=== PATIENT | female | born 1990 | race Caucasian/White ===

== ENCOUNTER 2018-06-25 13:09 | Emergency (ER) | payer SELFPAY ==
[~2018-06-25] VITALS: Ht 162.6 cm; Wt 75.7 kg
--- OUTSIDE RECORDS SUMMARY | 2018-06-25 13:15 | XMS REPORT | CCD ---
Author Author ELIANA ANTUNEZ Organization Unknown Address [address] [place] [address] Care Team Providers Care Claim Auditor Name Role Phone PHIL BARKSDALE DO Attphys Allergies Unknown or Not Available. Active Medications Unknown or Not Available. Problems Problem Code Start Date Resolved Date Status Acute appendicitis 52342482 Active Post-op pain 430831474 Active [id number] 11/25/2017 12/23/2017 Resolved Procedures Procedure Code Procedure Type Date ^CULTURE URINE IDENTIFICATION [id number] SNOMED CT 2016 ^CULTURE AEROBIC ID [id number] SNOMED CT 04/29/2017 CULTURE URINE [id number] SNOMED CT 04/29/2017 UA ROUTINE C&S IF IND [id number] SNOMED CT 04/29/2017 ^UA WITH MICRO [id number] SNOMED CT 04/29/2017 Results UA ROUTINE C&S IF IND - Collect Date/Time: 04/29/2017 01:13 Test Name Code Test Result Test Units Test Ref Range COLOR YELLOW N/A NL: YELLOW APPEARANCE CLOUDY N/A NL: CLEAR SPEC GRAV >=1.030 N/A NL: 1.002 - 1.022 pH 5.5 N/A NL: 5 - 9 PROTEIN 100 N/A NL: NEGATIVE mg/dl GLUCOSE NEGATIVE N/A NL: NEGATIVE mg/dl KETONE NEGATIVE N/A NL: NEGATIVE mg/dl BILIRUBIN NEGATIVE N/A NL: NEGATIVE BLOOD LARGE N/A NL: NEGATIVE NITRITE NEGATIVE N/A NL: NEGATIVE LEUK SCREEN MODERATE N/A NL: NEGATIVE MICRO INDICATED? SEE BELOW N/A WBC/HPF 300-500 N/A NL: NEGATIVE RBC/HPF 50-100 N/A NL: NEGATIVE CASTS/LPF NEGATIVE N/A NL: NEGATIVE CRYSTALS NEGATIVE N/A NL: NEGATIVE MUCOUS THRDS FEW N/A NL: NEGATIVE BACTERIA 2++ N/A NL: NEGATIVE EPITH CELLS 2++ SQUAMOUS N/A NL: NEGATIVE TRICHOMONAS NEGATIVE N/A NL: NEGATIVE YEAST NEGATIVE N/A NL: NEGATIVE CULT SET UP? YES N/A Function Status Unknown or Not Available. History of Immunizations Immunization Code Date DTP 1992 DTP 05/07/1996 OPV 1992 OPV 01/20/1996 OPV 05/07/1996 OPV 02 11/26/1996 MMR 03 01/20/1996 MMR 03 07/30/1996 Hep B, adolescent or pediatric 01/20/1996 Hep B, adolescent or pediatric 05/07/1996 Hep B, adolescent or pediatric 08 07/30/1996 DTaP 20 11/26/1996 DTP-Hib 22 01/20/1996 Hib (HbOC) 47 1992 Plan of Treatment Unknown or Not Available. Social History Smoking Status Code Start Date End Date Never smoker [id number] Vital Signs Unknown or Not Available. Function Status Unknown or Not Available. Goals Unknown or Not Available. ASSESSMENTS Unknown or Not Available. Health Concerns Section Unknown or Not Available.
--- OUTSIDE RECORDS SUMMARY | 2018-06-25 13:16 | XMS REPORT ---
Author Author Rene Dillard [facility] Address [address] [place], [place] [address] Care Team Providers Care Plow Shaker Name Role Phone Rene Dillard PCP Eloisa Smithn PreferredProvider Allergies and Adverse Reactions Name Reaction Notes No known drug allergy Plan of Treatment Planned Activity Comments Planned Date Planned Time Plan/Goal Transabdominal / Transvaginal US (non-OB) 05/26/2018 12:00 AM Transabdominal / Transvaginal US (non-OB) 05/26/2018 12:00 AM Medications Active Name Start Date Estimated Completion Date SIG Comments Sprintec (28) 0.25-35 mg-mcg oral tablet 03/12/2018 take 1 tablet by oral route once daily Lo Loestrin Fe 1 mg-10 mcg (24)/10 mcg (2) oral tablet 05/26/2018 take 1 tablet by oral route once daily. (brand name necessary) naproxen 250 mg oral tablet ibuprofen 200 mg oral capsule take 4 capsules by oral route every 6 hours as needed amoxicillin 875 mg oral tablet 05/28/2018 06/07/2018 take 1 tablet (875 mg) by oral route every 12 hours for 10 days Name Start Date Expiration Date SIG Comments cephalexin 500 mg oral capsule 04/17/2017 04/24/2017 take 1 capsule (500 mg) by oral route every 12 hours for 7 days triamcinolone acetonide 0.1 % topical cream 04/17/2017 04/24/2017 apply a thin layer to the affected area(s) by topical route 2 times per day for 7 days [place] 5-325 mg oral tablet 02/18/2018 take 1 tablet by oral route every 4-6 hours as needed for pain Discontinued Name Start Date Discontinued Date SIG Comments Progestrone 200 mg 08/06/2017 Problem List Not available. Vital Signs Date Time BP-Sys(mm[Hg] BP-Avani(mm[Hg]) HR(bpm) RR(rpm) Temp WT HT HC BMI BSA BMI Percentile O2 Sat(%) 05/28/2018 3:57:00 PM 124 mmHg 68 mmHg 88 bpm 18 rpm 98.1 F 179.25 lbs 66 in 28.9314 kg/m 1.9458 m 99 % 05/26/2018 10:56:00 AM 133 mmHg 86 mmHg 88 bpm 18 rpm 100.6 F 180.5 lbs 66 in 29.13 kg/m2 1.95 m2 100 % 03/04/2018 11:17:00 AM 104 mmHg 80 mmHg 74 bpm 98.4 F 180 lbs 66 in 29.0525 kg/m 1.9499 m 97 % 02/18/2018 10:11:00 AM 110 mmHg 80 mmHg 95 bpm 16 rpm 98 F 179 lbs 66 in 28.89 kg/m2 1.94 m2 97 % 02/17/2018 2:48:00 PM 120 mmHg 84 mmHg 75 bpm 16 rpm 98.2 F 182 lbs 66 in 29.3753 kg/m 1.9607 m 98 % 01/29/2018 2:16:00 PM 112 mmHg 82 mmHg 74 bpm 16 rpm 98.2 F 182 lbs 66 in 29.38 kg/m2 1.96 m2 98 % 01/27/2018 9:31:00 AM 120 mmHg 68 mmHg 82 bpm 16 rpm 98.7 F 177 lbs 66 in 28.5683 kg/m 1.9336 m 98 % 01/06/2018 1:31:00 PM 120 mmHg 78 mmHg 83 bpm 98.9 F 176 lbs 66 in 28.41 kg/m2 1.93 m2 08/06/2017 3:31:00 PM 118 mmHg 64 mmHg 84 bpm 16 rpm 98 F 172.125 lbs 66 in 27.7814 kg/m 1.9067 m 99 % 04/19/2017 11:05:00 AM 108 mmHg 71 mmHg 89 bpm 99.3 F 173 lbs 66 in 27.92 kg/m2 1.91 m2 04/17/2017 11:54:00 AM 110 mmHg 80 mmHg 81 bpm 18 rpm 98.2 F 173 lbs 66 in 27.9226 kg/m 1.9116 m 99 % Social History Name Description Comments Tobacco Never smoker Alcohol Former History of Procedures Date Ordered Description Order Status 04/19/2017 11:36 AM URINE TEST Reviewed 04/19/2017 12:00 AM CYTOPATH C/V THIN LAYER Reviewed 04/19/2017 12:00 AM SPECIMEN HANDLING OFFICE-LAB Reviewed 04/19/2017 12:00 AM N.GONORRHOEAE DNA AMP PROB Reviewed 04/19/2017 12:00 AM CHLAMYDIA CULTURE Reviewed 04/19/2017 12:00 AM HIV-1ANTIBODY Reviewed 04/19/2017 12:00 AM URINALYSIS AUTO W/SCOPE Reviewed 04/19/2017 12:00 AM OBSTETRIC PANEL Reviewed 04/19/2017 12:00 AM HEPATITIS C AB TEST Reviewed 04/19/2017 12:00 AM TRICHOMONAS VAGINALIS AMPLIF Reviewed 05/03/2017 12:00 AM US PREG UTERUS REAL TIME W/IMAGE DCMTN TRANSVAG Reviewed 05/09/2017 12:00 AM Progenity Testing Reviewed 07/11/2017 12:00 AM OB US >/=14 WKS SNGL FETUS Reviewed 08/22/2017 12:00 AM GLUCOSE TOLERANCE TEST (GTT) Reviewed 08/22/2017 12:00 AM COMPLETE CBC W/AUTO DIFF WBC Reviewed 08/22/2017 12:00 AM Type and screen Reviewed 08/06/2017 12:00 AM X-RAY EXAM OF WRIST Reviewed 09/19/2017 12:00 AM Type and screen Reviewed 09/19/2017 12:00 AM GLUCOSE TOLERANCE TEST (GTT) Reviewed 09/19/2017 12:00 AM COMPLETE CBC W/AUTO DIFF WBC Reviewed 10/10/2017 12:00 AM TDAP VACCINE 7 YRS/> IM Reviewed 10/10/2017 12:00 AM IMMUNIZATION ADMIN Reviewed 11/04/2017 12:00 AM CULTURE SCREEN ONLY Reviewed 01/06/2018 12:00 AM CYTOPATH C/V THIN LAYER Reviewed 02/18/2018 12:[address] ABD & PELV W/CONTRAST Returned 02/18/2018 12:00 AM COMPLETE CBC W/AUTO DIFF WBC Returned 02/18/2018 12:00 AM COMPREHEN METABOLIC PANEL Returned 02/18/2018 12:00 AM C-REACTIVE PROTEIN Returned 05/28/2018 12:00 AM THER/PROPH/DIAG INJ SC/IM Reviewed Results Summary Date and Description Results 04/19/2017 11:36 AM Test, Urine positive 04/19/2017 12:40 PM WBC 9.0 RBC 4.40 HGB 13.60 g/dLHCT 39.40 %MCV 90.0 fLMCH 30.90 pgMCHC 34.50 g/dLRDW SD 42 RDW CV 12.80 %MPV 8.60 fLPLT 293 NRBC# 0.00 NRBC% 0.0 %NEUT 59.20 %%LYMP 31.70 %%MONO 6.60 %%EOS 1.60 %%BASO 0.30 %#NEUT 5.32 #LYMP 2.85 #MONO 0.59 #EOS 0.14 #BASO 0.03 MANUAL DIFF NOT IND HEPATITIS C 0.20 HIV AG/AB COMBO 0.15 RPR Non Reactive HBsAg Screen Negative Rubella Antibodies, IgG 4.46 Index 09/19/2017 4:08 PM WBC 12.0 RBC 4.14 HGB 13.0 g/dLHCT 38.0 %MCV 92.0 fLMCH 31.40 pgMCHC 34.20 g/dLRDW SD 42 RDW CV 12.50 %MPV 8.90 fLPLT 277 NRBC# 0.00 NRBC% 0.0 %NEUT 72.70 %%LYMP 18.10 %%MONO 6.20 %%EOS 1.40 %%BASO 0.30 %#NEUT 8.72 #LYMP 2.17 #MONO 0.74 #EOS 0.17 #BASO 0.03 MANUAL DIFF NOT IND 11/04/2017 8:30 AM Strep Gp B NATI Negative History Of Immunizations Name Date Admin Mfg Name Mfg Code Trade Name Lot# Route Inj Vis Given Vis Pub CVX Tdap 10/10/2017 [employer] SKB BOOSTRIX [id number] Intramuscular Left Deltoid 10/10/2017 12/14/2014 115 History of Past Illness Name Date of Onset Comments endometriosis Apr 17 2017 11:57AM Cutaneous abscess of limb, unspecified Apr 17 2017 11:57AM Cellulitis of unspecified part of limb Apr 17 2017 11:57AM Earlobe lesion, left Apr 17 2017 11:57AM , confirmed, not first Apr 19 2017 11:14AM Encounter for supervision of normal in multigravida in first trimester May 03 2017 10:48AM Normal in multigravida in first trimester May 09 2017 10:17AM Normal in multigravida in second trimester Jun 27 2017 11:09AM Left wrist pain Aug 06 2017 3:39PM Normal in multigravida in second trimester Aug 22 2017 2:59PM Normal in multigravida in second trimester Sep 19 2017 3:08PM Need for Tdap vaccine Oct 10 2017 11:50AM screening for streptococcus B Nov 04 2017 1:58PM 6 weeks follow-up Jan 06 2018 1:36PM Encounter for occupational health examination Jan 27 2018 9:35AM Epigastric hernia Jan 29 2018 2:16PM Chills Feb 18 2018 10:12AM Unspecified abdominal pain Feb 18 2018 10:12AM Other acute postprocedural pain Feb 18 2018 10:12AM Encounter for examination following surgery Mar 04 2018 11:20AM Encounter for examination following surgery Feb 17 2018 2:49PM Acute pain in female pelvis May 26 2018 11:27AM control counseling May 26 2018 11:01AM Ovarian cyst May 26 2018 11:01AM Menorrhagia May 26 2018 11:01AM Metrorrhagia May 26 2018 11:01AM Throat Pain May 28 2018 4:04PM Strep pharyngitis May 28 2018 4:04PM Payers Insurance Name Company Name Plan Name Plan Number Policy Number Policy Group Number [facility] Date [id number] N/A [facility] [id number] N/A [facility] Med Occupational Medicine [id number] N/A [facility] [id number] N/A History of Encounters Visit Date Visit Type Provider 05/28/2018 Office visit Rene Dillard NP 05/26/2018 Office visit Samy Griffin MD 03/04/2018 Office visit Saul Ramires MD 02/20/2018 Surgery Saul Ramires MD 02/18/2018 Office visit Saul Ramires MD 02/17/2018 Office visit Saul Ramires MD 02/07/2018 Surgery Saul Ramires MD 01/29/2018 Office visit Saul Ramires MD 01/27/2018 Office visit Teresita Carter APRN 01/06/2018 Office visit Samy Griffin MD 11/25/2017 [facility] Samy Griffin MD 11/21/2017 Office visit Samy Griffin MD 11/18/2017 Office visit Samy Griffin MD 11/11/2017 Office visit Samy Griffin MD 11/04/2017 Office visit Samy Griffin MD 10/31/2017 Office visit Samy Griffin MD 10/22/2017 Office visit Samy Griffin MD 10/10/[address] Nany Vega MD 09/19/2017 Office visit Samy Griffin MD 08/22/2017 Office visit Samy Griffin MD 08/06/2017 Office visit Rene Dillard NP 07/25/2017 Office visit Samy Griffin MD 06/27/2017 Office visit Samy Griffin MD 05/30/2017 Office visit Samy Griffin MD 05/03/2017 Office visit Samy Griffin MD 04/19/2017 Office visit Shelia Jarvis APRN 04/17/2017 Office visit Eloisa Smith APRN
--- OUTSIDE RECORDS SUMMARY | 2018-06-25 13:16 | XMS REPORT ---
Author Author Rene Dillard [facility] Address [address] [place], [place] [address] Care Team Providers Care Underwear Cutter Name Role Phone Rene Dillard PCP Eloisa [...] 2 times per day for 7 days [place] 5-325 mg oral tablet 02/18/2018 take 1 [...] Vis Given Vis Pub CVX Tdap 10/10/2017 [employer] SKB BOOSTRIX [id number] Intramuscular Left Deltoid 10/10/2017 [...] Policy Number Policy Group Number Start Date [facility] [id number] N/A [facility] [id number] N/A [facility] Med Occupational Medicine [id number] N/A [facility] [id number] N/A History of Encounters Visit Date Visit [...] 01/06/2018 Office visit Samy Griffin MD 11/25/2017 [facility] Samy Griffin MD 11/21/2017 Office visit Samy [...]
--- OUTSIDE RECORDS SUMMARY | 2018-06-25 13:17 | XMS REPORT ---
Author Author Samy Griffin [facility] Address [address] [place], [place] [address] Care Team Providers Care Production Miner Name Role Phone Samy Griffin PCP Eloisa Smith PreferredProvider Allergies and Adverse Reactions Name Reaction Notes No known drug allergy Plan of Treatment Planned Activity Comments Planned Date Planned Time Plan/Goal Transabdominal / Transvaginal US (non-OB) 05/26/2018 12:00 AM Transabdominal / Transvaginal US (non-OB) 05/26/2018 12:00 AM Medications Active Name Start Date Estimated Completion Date SIG Comments [place] 5-325 mg oral tablet 02/18/2018 take 1 tablet by oral route every 4-6 hours as needed for pain Sprintec (28) 0.25-35 mg-mcg oral tablet 03/12/2018 take 1 tablet by oral route once daily Name Start Date Expiration Date SIG Comments cephalexin 500 mg oral capsule 04/17/2017 04/24/2017 take 1 capsule (500 mg) by oral route every 12 hours for 7 days triamcinolone acetonide 0.1 % topical cream 04/17/2017 04/24/2017 apply a thin layer to the affected area(s) by topical route 2 times per day for 7 days Discontinued Name Start Date Discontinued Date SIG Comments Progestrone 200 mg 08/06/2017 Problem List Not available. Vital Signs Date Time BP-Sys(mm[Hg] BP-Avani(mm[Hg]) HR(bpm) RR(rpm) Temp WT HT HC BMI BSA BMI Percentile O2 Sat(%) 05/26/2018 10:56:00 AM 133 mmHg 86 mmHg 88 bpm 18 rpm 100.6 F 180.5 lbs 66 in 29.1332 kg/m 1.9526 m 100 % 03/04/2018 11:17:00 AM 104 mmHg 80 mmHg 74 bpm 98.4 F 180 lbs 66 in 29.05 kg/m2 1.95 m2 97 % 02/18/2018 10:11:00 AM 110 mmHg [...] Returned 02/18/2018 12:00 AM C-REACTIVE PROTEIN Returned Results Summary Date and Description Results 04/19/2017 [...] Vis Given Vis Pub CVX Tdap 10/10/2017 [employer] SKB BOOSTRIX [id number] Intramuscular Left Deltoid 10/10/2017 [...] in female pelvis May 26 2018 11:27AM Payers Insurance Name Company Name Plan Name Plan Number Policy Number Policy Group Number Start Date BCBS [employer] [place] [id number] N/A [facility] [id number] N/A [facility] Occupational Medicine [id number] N/A [facility] [id number] N/A History of Encounters Visit Date Visit Type Provider 05/26/2018 Office visit Samy Griffin MD 03/04/2018 Office visit Saul Ramires MD 02/20/2018 Surgery Saul Ramires MD 02/18/2018 Office visit Saul Ramires MD 02/17/2018 Office visit Saul Ramires MD 02/07/2018 Surgery Saul Ramires MD 01/29/2018 Office visit Saul Ramires MD 01/27/2018 Office visit Teresita Carter ROTARY PLANER SET UP OPERATOR 01/06/2018 Office visit Samy Griffin MD 11/25/2017 [facility] Samy Griffin MD 11/21/2017 Office visit [...] Griffin MD 04/19/2017 Office visit Shelia Jarvis ROTARY PLANER SET UP OPERATOR 04/17/2017 Office visit Eloisa Smith ROTARY PLANER SET UP OPERATOR
--- OUTSIDE RECORDS SUMMARY | 2018-06-25 13:17 | XMS REPORT ---
Author Author Samy Griffin [facility] Address [address] [place], [place] [address] Care Team Providers Care Outbound Sales Agent Name Role Phone Samy Griffin PCP Eloisa Smith PreferredProvider Allergies and Adverse Reactions Name Reaction Notes No known drug allergy Plan of Treatment Planned Activity Comments Planned Date Planned Time Plan/Goal Transabdominal / Transvaginal US (non-OB) 05/26/2018 12:00 AM Transabdominal / Transvaginal US (non-OB) 05/26/2018 12:00 AM Medications Active Name Start Date Estimated Completion Date SIG Comments [place] 5-325 mg oral tablet 02/18/2018 take 1 tablet by oral route every 4-6 hours as needed for pain Sprintec (28) 0.25-35 mg-mcg oral tablet 03/12/2018 take 1 tablet by oral route once daily Lo Loestrin Fe 1 mg-10 mcg (24)/10 mcg (2) oral tablet 05/26/2018 take 1 tablet by oral route once daily. (brand name necessary) Name Start Date Expiration Date SIG Comments [...] Vis Given Vis Pub CVX Tdap 10/10/2017 [employer] SKB BOOSTRIX [id number] Intramuscular Left Deltoid 10/10/2017 [...] 2018 11:01AM Metrorrhagia May 26 2018 11:01AM Payers Insurance Name Company Name Plan Name Plan Number Policy Number Policy Group Number Start Date BCBS [employer] [place] [id number] N/A [facility] [id number] N/A [facility] Occupational Medicine [id number] N/A [facility] - [facility] [id number] N/A History of Encounters Visit Date Visit Type Provider 05/26/2018 Office visit Samy Griffin MD 03/04/2018 Office visit Saul Ramires MD 02/20/2018 Surgery Saul Ramires MD 02/18/2018 Office visit Saul Ramires MD 02/17/2018 Office visit Saul Ramires MD 02/07/2018 Surgery Saul Ramires MD 01/29/2018 Office visit Saul Ramires MD 01/27/2018 Office visit Teresita Carter APRN 01/06/2018 Office visit Samy Griffin MD 11/25/2017 [facility] Samy Griffin MD 11/21/2017 Office [...] Jarvis APRN 04/17/2017 Office visit Eloisa Smith INVESTIGATIVE SHOPPER
--- OUTSIDE RECORDS SUMMARY | 2018-06-25 13:18 | XMS REPORT ---
Author Author Saul Ramires [facility] Address [address] [place], [place] [address] Care Team Providers Care Smoking Pipes Cleaner Name Role Phone Saul Ramires PCP Eloisa Smithn PreferredProvider Allergies and Adverse Reactions Name Reaction Notes No known drug allergy Plan of Treatment Not available. Medications Active Name Start Date Estimated Completion Date SIG Comments [place] 5-325 mg oral tablet 02/18/2018 take 1 [...] HC BMI BSA BMI Percentile O2 Sat(%) 03/04/2018 11:17:00 AM 104 mmHg 80 mmHg [...] Vis Given Vis Pub CVX Tdap 10/10/2017 [employer] SKB BOOSTRIX [id number] Intramuscular Left Deltoid 10/10/2017 [...] examination following surgery Feb 17 2018 2:49PM Payers Insurance Name Company Name Plan Name Plan Number Policy Number Policy Group Number Start Date [facility] [id number] N/A [facility] [id number] N/A [facility] Med Occupational Medicine [id number] N/A [facility] [id number] N/A History of Encounters Visit Date Visit Type Provider 03/04/2018 Office visit Saul Ramires MD 02/20/2018 Surgery Saul Ramires MD 02/18/2018 Office visit Saul Ramires MD 02/17/2018 Office visit Saul Ramires MD 02/07/2018 Surgery Saul Ramires MD 01/29/2018 Office visit Saul Ramires MD 01/27/2018 Office visit Teresita Carter TOBACCO WETTER 01/06/2018 Office visit Samy Griffin MD 11/25/2017 [facility] Samy Griffin MD 11/21/2017 Office visit [...] Griffin MD 04/19/2017 Office visit Shelia Jarvis TOBACCO WETTER 04/17/2017 Office visit Eloisa Smith TOBACCO WETTER
--- OUTSIDE RECORDS SUMMARY | 2018-06-25 13:18 | XMS REPORT ---
Author Author Samy Griffin Organization [facility] Address [address] [place], [place] [address] Care Team Providers Care Glaze Handler Name Role Phone Samy Griffin PCP Eloisa Smith PreferredProvider Allergies and Adverse Reactions Name Reaction Notes No known drug allergy Plan of Treatment Planned Activity Comments Planned Date Planned Time Plan/Goal GLUCOSE 50 gm 08/22/2017 12:00 AM CBC With Auto Differential 08/22/2017 12:00 AM 1 hour glucose tolerance test 09/19/2017 12:00 AM CBC + platelets + diff auto 09/19/2017 12:00 AM Medications Name Start Date Expiration Date SIG Comments [...] HC BMI BSA BMI Percentile O2 Sat(%) 08/06/2017 3:31:00 PM 118 mmHg 64 mmHg 84 bpm 16 rpm 98 F 172.125 lbs 66 in 27.78 kg/m2 1.91 m2 99 % 04/19/2017 11:05:00 AM 108 mmHg 71 mmHg 89 bpm 99.3 F 173 lbs 66 in 27.9226 kg/m 1.9116 m 04/17/2017 11:54:00 AM 110 mmHg 80 mmHg 81 bpm 18 rpm 98.2 F 173 lbs 66 in 27.92 kg/m2 1.91 m2 99 % Social History Name Description Comments [...] OB US >/=14 WKS SNGL FETUS Reviewed 08/06/2017 12:00 AM X-RAY EXAM OF WRIST Reviewed Results Summary Date and Description Results [...] Screen Negative Rubella Antibodies, IgG 4.46 Index History Of Immunizations Not available. History of Past Illness Name Date of [...] in second trimester Sep 19 2017 3:08PM Payers Insurance Name Company Name Plan Name Plan Number Policy Number Policy Group Number Start Date BCBS [employer] [place] [id number] N/A [facility] [id number] N/A [facility] [id number] N/A History of Encounters Visit Date Visit Type Provider 09/19/2017 Office visit Samy Griffin MD 08/22/2017 Office visit Samy Griffin MD 08/06/2017 Office visit Rene Dillard NP 07/25/2017 Office visit Samy Griffin MD 06/27/2017 Office visit Samy Griffin MD 05/30/2017 Office visit Samy Griffin MD 05/03/2017 Office visit Samy Griffin MD 04/19/2017 Office visit Shelia Jarvis APRN 04/17/2017 Office visit Eloisa Smith APRN
--- OUTSIDE RECORDS SUMMARY | 2018-06-25 13:18 | XMS REPORT ---
Author Author Samy Griffin Organization [facility] Address [address] [place], [place] [address] Care Team Providers Care Scrap Collector Name Role Phone Samy Griffin PCP Unavailable Eloisa Smith PreferredProvider Unavailable Allergies and Adverse Reactions Name Reaction Notes No known drug allergy Plan of Treatment Planned Activity Comments Planned Date Planned Time Plan/Goal GLUCOSE 50 gm 08/22/2017 12:00 AM CBC With Auto Differential 08/22/2017 12:00 AM Medications Name Start Date Expiration [...] in second trimester Aug 22 2017 2:59PM Payers Insurance Name Company Name Plan Name Plan Number Policy Number Policy Group Number Start Date [id number] N/A [facility] [id number] N/A History of Encounters Visit Date Visit Type Provider 08/22/2017 Office visit Samy Griffin MD 08/06/2017 Office visit Rene Dillard NP 07/25/2017 Office visit Samy Griffin MD 06/27/2017 Office visit Samy Griffin MD 05/30/2017 Office visit Samy Griffin MD 05/03/2017 Office visit Samy Griffin MD 04/19/2017 Office visit Shelia Jarvis APRN 04/17/2017 Office visit Eloisa Smith WELDING SYSTEMS AND EQUIPMENT REPAIRER
--- OUTSIDE RECORDS SUMMARY | 2018-06-25 13:18 | XMS REPORT ---
Author Author Saul Ramires [facility] Address [address] [place], [place] [address] Care Team Providers Care Research Intern Name Role Phone Saul Ramires PCP Eloisa Smithn PreferredProvider Allergies and Adverse Reactions Name Reaction Notes No known drug allergy Plan of Treatment Not available. Medications Active Name Start Date Estimated Completion Date SIG Comments [place] 5-325 mg oral tablet 02/18/2018 take 1 [...] Vis Given Vis Pub CVX Tdap 10/10/2017 [employer] SKB BOOSTRIX [id number] Intramuscular Left Deltoid 10/10/2017 [...] Policy Number Policy Group Number [facility] Date [facility] [id number] N/A [facility] [id number] N/A [facility] Med Occupational Medicine [id number] N/A [facility] [id number] N/A History of Encounters Visit Date Visit Type Provider 03/04/2018 Office visit Saul Ramires MD 02/20/2018 Surgery Saul Ramires MD 02/18/2018 Office visit Saul Ramires MD 02/17/2018 Office visit Saul Ramires MD 02/07/2018 Surgery Saul Ramires MD 01/29/2018 Office visit Saul Ramires MD 01/27/2018 Office visit Teresita Carter WINERY CELLAR HAND 01/06/2018 Office visit Samy Griffin MD 11/25/2017 [facility] Samy Griffin MD 11/21/2017 [...] Griffin MD 04/19/2017 Office visit Shelia Jarvis WINERY CELLAR HAND 04/17/2017 Office visit Eloisa Smith WINERY CELLAR HAND
--- OUTSIDE RECORDS SUMMARY | 2018-06-25 13:19 | XMS REPORT ---
Author Author Samy Griffin [facility] Address [address] [place], [place] [address] Care Team Providers Care Animal Tech Name Role Phone Samy Griffin PCP Eloisa Smith PreferredProvider Allergies and Adverse Reactions Name Reaction Notes No known drug allergy Plan of Treatment Planned Activity Comments Planned Date Planned Time Plan/Goal Group B strep culture 11/04/2017 12:00 AM Medications Name Start Date Expiration [...] Reviewed 10/10/2017 12:00 AM IMMUNIZATION ADMIN Reviewed Results Summary Date and Description Results [...] 0.17 #BASO 0.03 MANUAL DIFF NOT IND History Of Immunizations Name Date Admin Mfg Name Mfg Code Trade Name Lot# Route Inj Vis Given Vis Pub CVX Tdap 10/10/2017 Nitric Bio SKB BOOSTRIX [id number] Intramuscular Left Deltoid 10/10/2017 [...] for streptococcus B Nov 04 2017 1:58PM Payers Insurance Name Company Name Plan Name Plan Number Policy Number Policy Group Number Start Date BCBS Bcbs [facility] [id number] N/A [facility] [id number] N/A [facility] [id number] N/A History of Encounters Visit Date Visit Type Provider 11/04/2017 Office visit Samy Griffin MD 10/31/2017 [...]
--- OUTSIDE RECORDS SUMMARY | 2018-06-25 13:19 | XMS REPORT ---
Author Author Saul Ramires [facility] Address [address] [place], [place] [address] Care Team Providers Care Meal Grinder Tender Name Role Phone Saul Ramires PCP Eloisa Smith PreferredProvider Allergies and Adverse Reactions Name Reaction Notes No known drug allergy Plan of Treatment Not available. Medications Active Name Start Date Estimated Completion Date SIG Comments [place] 5-325 mg oral tablet 02/18/2018 take 1 tablet by oral route every 4-6 hours as needed for pain Name Start Date Expiration Date SIG Comments [...] Vis Given Vis Pub CVX Tdap 10/10/2017 GlaxoSmithKline SKB BOOSTRIX [id number] Intramuscular Left Deltoid 10/10/2017 [...] examination following surgery Mar 04 2018 11:20AM Payers Insurance Name Company Name Plan Name Plan Number Policy Number Policy Group Number [facility] Date [facility] [id number] N/A [facility] - [facility] [id number] N/A [facility] [id number] N/A [facility] Med Occupational Medicine [id number] N/A History of Encounters Visit Date Visit Type Provider 03/04/2018 Office visit Saul Ramires MD 02/20/2018 Surgery Saul Ramires MD 02/18/2018 Office visit Saul Ramires MD 02/17/2018 Office visit Saul Ramires MD 02/07/2018 Surgery Saul Ramires MD 01/29/2018 Office visit Saul Ramires MD 01/27/2018 Office visit Teresita Carter PAINT TRIMMER PIPE BOWLS 01/06/2018 Office visit Samy Griffin MD 11/25/2017 [facility] Samy Griffin MD 11/21/2017 Office [...] Griffin MD 04/19/2017 Office visit Shelia Jarvis PAINT TRIMMER PIPE BOWLS 04/17/2017 Office visit Eloisa Smith PAINT TRIMMER PIPE BOWLS
--- OUTSIDE RECORDS SUMMARY | 2018-06-25 13:19 | XMS REPORT ---
Author Author Samy Griffin [facility] Address [address] [place], [place] [address] Care Team Providers Care Shipping Room Supervisor Name Role Phone Samy Griffin PCP Eloisa Smith PreferredProvider Allergies and Adverse Reactions Name Reaction Notes No known drug allergy Plan of Treatment Not available. Medications Name Start Date Expiration Date SIG [...] 11/04/2017 12:00 AM CULTURE SCREEN ONLY Reviewed Results Summary Date and Description Results [...] Vis Given Vis Pub CVX Tdap 10/10/2017 [employer]isan [employer] SKB BOOSTRIX [id number] Intramuscular Left Deltoid 10/10/2017 [...] Policy Group Number Start Date BCBS Bcbs [facility] [id number] N/A [facility] [id number] N/A [facility] [id number] N/A History of Encounters Visit Date Visit Type Provider 11/18/2017 Office visit Samy Griffin MD 11/11/2017 [...] Jarvis APRN 04/17/2017 Office visit Eloisa Smith WEED BURNER
--- OUTSIDE RECORDS SUMMARY | 2018-06-25 13:19 | XMS REPORT ---
Author Author Samy Griffin [facility] Address [address] [place], [place] [phone] Care Team Providers Care Screw Machine Hand Name Role Phone Samy Griffin PCP Eloisa [...] Reviewed 11/04/2017 12:00 AM CULTURE SCREEN ONLY Returned Results Summary Date and Description Results [...] Vis Given Vis Pub CVX Tdap 10/10/2017 [employer]street SKB BOOSTRIX [id number] Intramuscular Left Deltoid 10/10/2017 [...] Policy Group Number Start Date BCBS Bcbs [facility] [id number] N/A [facility] [id number] N/A [facility] [id number] N/A History of Encounters Visit Date Visit Type Provider 11/11/2017 Office visit Samy Griffin MD 11/04/2017 [...]
--- OUTSIDE RECORDS SUMMARY | 2018-06-25 13:20 | XMS REPORT ---
Author Author Saul Ramires [facility] Address [address] [place], [place] [address] Care Team Providers Care Christmas Tree Farm Crew Boss Name Role Phone Saul Ramires PCP Eloisa Smithn PreferredProvider Allergies and Adverse Reactions Name Reaction Notes No known drug allergy Plan of Treatment Not available. Medications Active Name Start Date Estimated Completion Date SIG Comments [place] 5-325 mg oral tablet 02/18/2018 take 1 [...] Vis Given Vis Pub CVX Tdap 10/10/2017 GlaxoSmithViratech SKB BOOSTRIX [id number] Intramuscular Left Deltoid 10/10/2017 [...] Group Number Start Date BCBS Bcbs [facility] [place] [id number] N/A [facility] [id number] N/A [facility] [id number] N/A [facility] Med Occupational Medicine [id number] N/A History of Encounters Visit Date Visit Type Provider 03/04/2018 Office visit Saul Ramires MD 02/20/2018 Surgery Saul Ramires MD 02/18/2018 Office visit Saul Ramires MD 02/17/2018 Office visit Saul Ramires MD 02/07/2018 Surgery Saul Ramires MD 01/29/2018 Office visit Saul Ramires MD 01/27/2018 Office visit Teresita Raul AUTO GLASS INSTALLER 01/06/2018 Office visit Samy Griffin MD 11/25/2017 [facility] Samy Griffin MD 11/21/2017 Office [...] Griffin MD 04/19/2017 Office visit Shelia Jarvis AUTO GLASS INSTALLER 04/17/2017 Office visit Eloisa Smith AUTO GLASS INSTALLER
--- OUTSIDE RECORDS SUMMARY | 2018-06-25 13:20 | XMS REPORT ---
Author Author Samy Griffin [facility] Address [address] [place], [place] [address] Care Team Providers Care Machine Featheredger And Reducer Name Role Phone Samy Griffin PCP Unavailable Eloisa Smith PreferredProvider Unavailable Allergies and Adverse Reactions Name Reaction Notes No known drug allergy Plan of Treatment Not available. Medications Active Name Start Date Estimated Completion Date SIG Comments Progestrone 200 mg Name Start Date Expiration Date SIG Comments cephalexin 500 mg oral capsule 04/17/2017 04/24/2017 take 1 capsule (500 mg) by oral route every 12 hours for 7 days triamcinolone acetonide 0.1 % topical cream 04/17/2017 04/24/2017 apply a thin layer to the affected area(s) by topical route 2 times per day for 7 days Problem List Not available. Vital Signs Date Time BP-Sys(mm[Hg] BP-Avani(mm[Hg]) HR(bpm) RR(rpm) Temp WT HT HC BMI BSA BMI Percentile O2 Sat(%) 04/19/2017 11:05:00 AM 108 mmHg 71 mmHg [...] OB US >/=14 WKS SNGL FETUS Reviewed Results Summary Date and Description Results [...] in second trimester Jun 27 2017 11:09AM Payers Insurance Name Company Name Plan Name Plan Number Policy Number Policy Group Number Start Date [facility] [id number] N/A [facility] [id number] N/A History of Encounters Visit Date Visit Type Provider 07/25/2017 Office visit Samy Griffin MD 06/27/2017 Office visit Samy Griffin MD 05/30/2017 Office visit Samy Griffin MD 05/03/2017 Office visit Samy Griffin MD 04/19/2017 Office visit Shelia Jarvis APRN 04/17/2017 Office visit Eloisa Smith ELECTRICAL WORKER
--- OUTSIDE RECORDS SUMMARY | 2018-06-25 13:20 | XMS REPORT ---
Author Author Samy Griffin [facility] Address [address] [place], [place] [address] Care Team Providers Care Gold Plater Name Role Phone Samy Griffin PCP Eloisa [...] Vis Given Vis Pub CVX Tdap 10/10/2017 [employer] SKB BOOSTRIX [id number] Intramuscular Left Deltoid 10/10/2017 [...] Policy Group Number Start Date BCBS Bcbs [facility] [id number] N/A [facility] [id number] N/A [facility] [id number] N/A History of Encounters Visit Date Visit [...]
--- OUTSIDE RECORDS SUMMARY | 2018-06-25 13:20 | XMS REPORT ---
Author Author Samy Griffin [facility] Address [address] [place], [place] [address] Care Team Providers Care Wrapper Hands Sprayer Name Role Phone Samy Griffin PCP Eloisa [...] Vis Given Vis Pub CVX Tdap 10/10/2017 GlaxSian[employer] Plan SKB BOOSTRIX [id number] Intramuscular Left Deltoid 10/10/2017 [...] for Tdap vaccine Oct 10 2017 11:50AM Payers Insurance Name Company Name Plan Name Plan Number Policy Number Policy Group Number Start Date BCBS Bcbs [facility] [id number] N/A [facility] [id number] N/A [facility] [id number] N/A History of Encounters Visit Date Visit Type Provider 10/31/2017 Office visit Samy Griffin MD 10/22/2017 [...]
--- OUTSIDE RECORDS SUMMARY | 2018-06-25 13:21 | XMS REPORT ---
Author Author Samy Griffin Organization [facility] Address [address] [place], [place] [address] Care Team Providers Care Decating Machine Operator Name Role Phone Samy Griffin PCP Unavailable [...] Number Policy Group Number Start Date [facility] [id number] N/A [facility] [id number] N/A History of Encounters Visit Date Visit Type Provider 08/22/2017 Office visit Samy Griffin MD 08/06/2017 Office visit Rene Dillard NP 07/25/2017 Office visit Samy Griffin MD 06/27/2017 Office visit Samy Griffin MD 05/30/2017 Office visit Samy Griffin MD 05/03/2017 Office visit Samy Griffin MD 04/19/2017 Office visit Shelia Jarvis APRN 04/17/2017 Office visit Eloisa Smith MANAGER BUDGET
--- OUTSIDE RECORDS SUMMARY | 2018-06-25 13:21 | XMS REPORT ---
Author Author Shelia Jarvis [facility] Address [address] [place], [place] [address] Care Team Providers Care Analytical Laboratory Technician Name Role Phone Shelia Jarvis PCP Unavailable Eloisa Smith PreferredProvider Unavailable Allergies [...] 04/19/2017 12:00 AM CYTOPATH C/V THIN LAYER Returned 04/19/2017 12:00 AM SPECIMEN HANDLING OFFICE-LAB Reviewed 04/19/2017 12:00 AM N.GONORRHOEAE DNA AMP PROB Returned 04/19/2017 12:00 AM CHLAMYDIA CULTURE Returned 04/19/2017 12:00 AM HIV-1ANTIBODY Reviewed 04/19/2017 12:00 AM URINALYSIS AUTO W/SCOPE Reviewed 04/19/2017 12:00 AM OBSTETRIC PANEL Reviewed 04/19/2017 12:00 AM HEPATITIS C AB TEST Reviewed 04/19/2017 12:00 AM TRICHOMONAS VAGINALIS AMPLIF Returned Results Summary Date and Description Results [...] 0.14 #BASO 0.03 MANUAL DIFF NOT IND COLOR YELLOW APPEARANCE CLEAR SPEC GRAV 1.025 pH 5.5 PROTEIN NEGATIVE GLUCOSE NEGATIVE mg/dLKETONE NEGATIVE BILIRUBIN NEGATIVE BLOOD TRACE-INTACT NITRITE NEGATIVE LEUK SCREEN SMALL WBC/HPF 0-5 RBC/HPF 0-5 CASTS/LPF NEGATIVE / LPFCRYSTALS NEGATIVE MUCOUS THRDS NEGATIVE BACTERIA 2++ EPITH CELLS 2++ SQUAMOUS /HPFTRICHOMONAS NEGATIVE YEAST NEGATIVE CULT ORDERED YES HEPATITIS C 0.20 HIV AG/AB COMBO 0.15 [...] confirmed, not first Apr 19 2017 11:14AM Payers Insurance Name Company Name Plan Name Plan Number Policy Number Policy Group Number Start Date [facility] [id number] N/A History of Encounters Visit Date Visit Type Provider 04/19/2017 Office visit Shelia Jarvis APRN 04/17/2017 Office visit Eloisa Smith FAMILY READINESS SUPPORT ASSISTANT
--- OUTSIDE RECORDS SUMMARY | 2018-06-25 13:21 | XMS REPORT ---
Author Author Saul Ramires [facility] Address [address] [place], [place] [address] Care Team Providers Care Soil And Plant Scientist Name Role Phone Saul Ramires PCP Eloisa [...] HC BMI BSA BMI Percentile O2 Sat(%) 01/29/2018 2:16:00 PM 112 mmHg 82 mmHg 74 bpm 16 rpm 98.2 F 182 lbs 66 in 29.3753 kg/m 1.9607 m 98 % 01/27/2018 9:31:00 AM 120 mmHg 68 mmHg 82 bpm 16 rpm 98.7 F 177 lbs 66 in 28.57 kg/m2 1.93 m2 98 % 01/06/2018 1:31:00 PM 120 mmHg [...] 12:00 AM CYTOPATH C/V THIN LAYER Reviewed Results Summary Date and Description Results [...] Vis Given Vis Pub CVX Tdap 10/10/2017 [employer] SKB BOOSTRIX [id number] Intramuscular Left Deltoid 10/10/2017 [...] 9:35AM Epigastric hernia Jan 29 2018 2:16PM Payers Insurance Name Company Name Plan Name Plan Number Policy Number Policy Group Number Start Date BCBS B[facility]bs [facility] [place] [id number] N/A [facility] [id number] N/A [facility] [id number] N/A [facility] Occupational Medicine [id number] N/A History of Encounters Visit Date Visit Type Provider 01/29/2018 Office visit Saul Ramires MD 01/27/2018 Office visit Teresita Carter LAMINATION INSPECTOR 01/06/2018 Office visit Samy Griffin MD 11/25/2017 [facility] Samy Griffin MD 11/21/2017 Office [...] Samy Griffin MD 04/19/2017 Office visit Shelia Javris LAMINATION INSPECTOR 04/17/2017 Office visit Eloisa Smith LAMINATION INSPECTOR
--- OUTSIDE RECORDS SUMMARY | 2018-06-25 13:21 | XMS REPORT ---
Author Author Nany Vega [facility] Address [address] [place], [place] [address] Care Team Providers Care Contract Graphic Designer Name Role Phone Nany Vega PCP lEoisa Smithn PreferredProvider Allergies and Adverse Reactions Name Reaction Notes No known drug allergy Plan of Treatment Planned Activity Comments Planned Date Planned Time Plan/Goal CBC With Auto Differential 08/22/2017 12:00 AM 1 hour glucose tolerance test 09/19/2017 12:00 AM Medications Name Start Date [...] 12:00 AM GLUCOSE TOLERANCE TEST (GTT) Reviewed 08/06/2017 12:00 AM X-RAY EXAM OF WRIST Reviewed 09/19/2017 12:00 AM Type and screen Reviewed 09/19/2017 12:00 AM COMPLETE CBC W/AUTO [...] Vis Given Vis Pub CVX Tdap 10/10/2017 [employer] SKB BOOSTRIX [id number] Intramuscular Left Deltoid 10/10/2017 [...] BCBS Bcbs [facility] [id number] N/A [facility] [id number] N/A [facility] [id number] N/A History of Encounters Visit Date Visit Type Provider 10/10/[address] Nany Vega MD 09/19/2017 Office visit Samy Griffin MD 08/22/2017 Office visit Samy Griffin MD 08/06/2017 Office visit Rene Dillard NP 07/25/2017 Office visit Samy Griffin MD 06/27/2017 Office visit Samy Griffin MD 05/30/2017 Office visit Samy Griffin MD 05/03/2017 Office visit Samy Griffin MD 04/19/2017 Office visit Shelia Jarvis APRN 04/17/2017 Office visit Eloisa Smith IN PROCESSING INSTRUCTOR
--- OUTSIDE RECORDS SUMMARY | 2018-06-25 13:21 | XMS REPORT ---
Author Author Samy Griffin Organization [facility] Address [address] [place], [place] [address] Care Team Providers Care Career Guidance Counselor Name Role Phone Samy Griffin PCP Unavailable Eloisa Smith PreferredProvider Unavailable Allergies and Adverse Reactions Name Reaction Notes No known drug allergy Plan of Treatment Planned Activity Comments Planned Date Planned Time Plan/Goal Ultrasound, OB complete >14 weeks 07/11/2017 12:00 AM Medications Active Name Start Date [...] Reviewed 05/09/2017 12:00 AM Progenity Testing Reviewed Results Summary Date and Description Results [...] Number Policy Group Number Start Date [facility] [id number] N/A [facility] [id number] N/A History of Encounters Visit Date Visit Type Provider 06/27/2017 Office visit Samy Griffin MD 05/30/2017 Office visit Samy Griffin MD 05/03/2017 Office visit Samy Griffin MD 04/19/2017 Office visit Shelia Jarvis APRN 04/17/2017 Office visit Eloisa Smith APRN
--- OUTSIDE RECORDS SUMMARY | 2018-06-25 13:22 | XMS REPORT ---
Author Author Samy Griffin [facility] Address [address] [place], [place] [address] Care Team Providers Care Vendor Representatives Name Role Phone Samy Griffin PCP Eloisa [...] Vis Given Vis Pub CVX Tdap 10/10/2017 GlaxTrak SKB BOOSTRIX [id number] Intramuscular Left Deltoid 10/10/2017 [...] Policy Group Number Start Date BCBS Bcbs [facility] [id number] N/A [facility] [id number] N/A [facility] [id number] N/A History of Encounters Visit Date Visit [...]
--- OUTSIDE RECORDS SUMMARY | 2018-06-25 13:22 | XMS REPORT ---
Author Author Samy Griffin Organization [facility] Address [address] [place], [place] [address] Care Team Providers Care Lockstitch Lining Maker Name Role Phone Samy Griffin PCP Eloisa [...] Vis Given Vis Pub CVX Tdap 10/10/2017 [employer] SKB BOOSTRIX [id number] Intramuscular Left Deltoid 10/10/2017 [...] Group Number Start Date BCBS Bcbs [facility] [place] [id number] N/A [facility]Note 3[facility] - [facility] [id number] N/A [facility] [id number] N/A History of Encounters Visit Date Visit Type Provider 10/22/2017 Office visit Samy Griffin MD 10/10/2017 [...] Jarvis APRN 04/17/2017 Office visit Eloisa Smith TIME MOTION ANALYST
--- OUTSIDE RECORDS SUMMARY | 2018-06-25 13:22 | XMS REPORT ---
Author Author Shelia Jarvis [facility] Address [address] [place], [place] [address] Care Team Providers Care Astronomy Teacher Name Role Phone Shelia Jarvis PCP Unavailable Eloisa Smith PreferredProvider Unavailable Allergies and Adverse Reactions Name Reaction Notes No known drug allergy Plan of Treatment Planned Activity Comments Planned Date Planned Time Plan/Goal *Thin layer pap with reflex to HPV ; cervical/vaginal (ThinPrep or Surepath) 04/19/2017 12:00 AM Gonorrhea 04/19/2017 12:00 AM Chlamydia 04/19/2017 12:00 AM HIV-1 antibody 04/19/2017 12:00 AM UA with Culture and Sensitivity 04/19/2017 12:00 AM panel (CBC with differential, automated, Hepatitis B surface antigen ( HBsAg), Rubella antibody, RBC antibody screen, Blood typing (ABO and Rh(D), RPR w/ Reflex to TP 04/19/2017 12:00 AM HEPATITIS C AB 04/19/2017 12:00 AM TRICHOMONAS AMPLIFIED 04/19/2017 12:00 AM Medications Active Name Start Date Estimated Completion Date SIG Comments cephalexin 500 mg oral capsule 04/17/2017 04/24/2017 take 1 capsule (500 mg) by oral route every 12 hours for 7 days triamcinolone acetonide 0.1 % topical cream 04/17/2017 04/24/2017 apply a thin layer to the affected area(s) by topical route 2 times per day for 7 days Progestrone 200 mg Problem List Not available. Vital Signs Date [...] Status 04/19/2017 11:36 AM URINE TEST Reviewed Results Summary Date and Description Results 04/19/2017 11:36 AM Test, Urine positive History Of Immunizations Not available. History of [...] Policy Number Policy Group Number Start Date [facility] [id number] N/A History of Encounters Visit Date Visit Type Provider 04/19/2017 Office visit Shelia Jarvis APRN 04/17/2017 Office visit Eloisa Smith TELEVISION OPERATOR
--- OUTSIDE RECORDS SUMMARY | 2018-06-25 13:22 | XMS REPORT ---
Author Author Samy Griffin [facility] Address [address] [place], [place] [address] Care Team Providers Care Inside Sales Coordinator Name Role Phone Samy Griffin PCP Eloisa [...] Vis Given Vis Pub CVX Tdap 10/10/2017 GlaxIndigo [employer] SKB BOOSTRIX [id number] Intramuscular Left Deltoid 10/10/2017 [...] Policy Group Number Start Date BCBS Bcbs [facility] [id number] N/A [facility] [id number] N/A [facility] [id number] N/A History of Encounters Visit Date Visit [...]
--- OUTSIDE RECORDS SUMMARY | 2018-06-25 13:23 | XMS REPORT ---
Author Author Shelia Jarvis [facility] Address [address] [place], [place] [address] Care Team Providers Care Lap Welder Name Role Phone Shelia Jarvis PCP Unavailable [...] Policy Number Policy Group Number Start Date [facility] [id number] N/A History of Encounters Visit Date Visit Type Provider 04/19/2017 Office visit Shelia Jarvis APRN 04/17/2017 Office visit Eloisa Smith APRN
--- OUTSIDE RECORDS SUMMARY | 2018-06-25 13:23 | XMS REPORT ---
Author Author Samy Griffin [facility] Address [address] [place], [place] [address] Care Team Providers Care [place] Dental Lab Technician Name Role Phone Samy Griffin PCP Eloisa [...] Vis Given Vis Pub CVX Tdap 10/10/2017 Dhingana SKB BOOSTRIX [id number] Intramuscular Left Deltoid 10/10/2017 [...] Policy Group Number Start Date BCBS Bcbs [facility] [id number] N/A [facility] [id number] N/A [facility] [id number] N/A History of Encounters Visit Date Visit [...] Jarvis APRN 04/17/2017 Office visit Eloisa Smith TUNNEL KILN REPAIRER
--- OUTSIDE RECORDS SUMMARY | 2018-06-25 13:23 | XMS REPORT ---
Author Author Samy Griffin [facility] Address [address] [place], [place] [address] Care Team Providers Care Supervisor Engraving Name Role Phone Samy Griffin PCP Eloisa [...] Vis Given Vis Pub CVX Tdap 10/10/2017 [employer] SKB BOOSTRIX [id number] Intramuscular Left Deltoid 10/10/2017 [...] Policy Group Number Start Date BCBS Bcbs [facility] [id number] N/A [facility] [id number] N/A [facility] [id number] N/A History of Encounters Visit Date Visit [...]
--- OUTSIDE RECORDS SUMMARY | 2018-06-25 13:23 | XMS REPORT ---
Author Author Samy Griffin [facility] Address [address] [place], [place] [address] Care Team Providers Care Hog Slaughterer Name Role Phone Samy Griffin PCP Eloisa [...] HC BMI BSA BMI Percentile O2 Sat(%) 01/06/2018 1:31:00 PM 120 mmHg 78 mmHg [...] IND 11/04/2017 8:30 AM Strep Gp B ANTI Negative History Of Immunizations Name Date Admin Mfg Name Mfg Code Trade Name Lot# Route Inj Vis Given Vis Pub CVX Tdap 10/10/2017 Carbonite SKB BOOSTRIX [id number] Intramuscular Left Deltoid 10/10/2017 [...] 6 weeks follow-up Jan 06 2018 1:36PM Payers Insurance Name Company Name Plan Name Plan Number Policy Number Policy Group Number Start Date BCBS Bcbs [facility] [place] [id number] N/A [facility] [id number] N/A [facility] [id number] N/A History of Encounters Visit Date Visit Type Provider 01/06/2018 Office visit Samy Griffin MD 11/25/2017 Hospital Samy Griffin MD 11/21/2017 Office visit [...]
--- OUTSIDE RECORDS SUMMARY | 2018-06-25 13:23 | XMS REPORT ---
Author Author Samy Griffin Organization [facility] Address [address] [place], [place] [id number] Care Team Providers Care Pourer Name Role Phone Samy Griffin PCP Unavailable [...] Number Policy Group Number [facility] Date [facility] [id number] N/A [facility] [id number] N/A History of Encounters Visit Date Visit Type Provider 06/27/2017 Office visit Samy Griffin MD 05/30/2017 Office visit Samy Griffin MD 05/03/2017 Office visit Samy Griffin MD 04/19/2017 Office visit Shelia Jarvis APRN 04/17/2017 Office visit Eloisa Smith APRN
--- OUTSIDE RECORDS SUMMARY | 2018-06-25 13:23 | XMS REPORT ---
Author Author Samy Griffin Organization [facility] Address [address] [place], [place] [phone] Care Team Providers Care Physician Obstetrician Name Role Phone Samy Griffin PCP Eloisa [...] Vis Given Vis Pub CVX Tdap 10/10/2017 Profista SKB BOOSTRIX [id number] Intramuscular Left Deltoid 10/10/2017 [...] Group Number Start Date BCBS [employer] [place] [id number] N/A [facility] [id number] N/A [facility] [id number] N/A History of Encounters Visit Date Visit [...] Jarvis APRN 04/17/2017 Office visit Eloisa Smith HELMET HAT SWEATBAND PUNCHER
--- OUTSIDE RECORDS SUMMARY | 2018-06-25 13:24 | XMS REPORT ---
Author Author Samy Griffin Organization [facility] Address [address] [place], [place] [address] Care Team Providers Care Physical Sciences Professor Name Role Phone Samy Griffin PCP Unavailable [...] Number Policy Group Number Start Date [facility] [id number] N/A [facility] [id number] N/A History of Encounters Visit Date Visit Type Provider 08/22/2017 Office visit Samy Griffin MD 08/06/2017 Office visit Reen Dillard NP 07/25/2017 Office visit Samy Griffin MD 06/27/2017 Office visit Samy Griffin MD 05/30/2017 Office visit Samy Griffin MD 05/03/2017 Office visit Samy Griffin MD 04/19/2017 Office visit Shelia Jarvis APRN 04/17/2017 Office visit Eloisa Smith SUPPLY CHAIN PROCUREMENT MANAGER
--- OUTSIDE RECORDS SUMMARY | 2018-06-25 13:24 | XMS REPORT ---
Author Author Samy Griffin [facility] Address [address] [place], [place] [address] Care Team Providers Care Hand Expansion Envelope Maker Name Role Phone Samy Griffin PCP Unavailable [...] UTERUS REAL TIME W/IMAGE DCMTN TRANSVAG Reviewed Results Summary Date and Description Results [...] in first trimester May 09 2017 10:17AM Payers Insurance Name Company Name Plan Name Plan Number Policy Number Policy Group Number Start Date [facility] [id number] N/A [facility] [place] [place] [id number] N/A History of Encounters Visit Date Visit Type Provider 05/03/2017 Office visit Samy Griffin MD 04/19/2017 Office visit Shelia Jarvis APRN 04/17/2017 Office visit Eloisa Smith APRN
--- OUTSIDE RECORDS SUMMARY | 2018-06-25 13:24 | XMS REPORT ---
Author Author Teresita Carter [facility] Address [address] [place], [place] [address] Care Team Providers Care Accounting Consultant Name Role Phone Teresita Carter PCP Lucky Eloisa Beata PreferredProvider Allergies and Adverse Reactions Name Reaction [...] HC BMI BSA BMI Percentile O2 Sat(%) 01/27/2018 9:31:00 AM 120 mmHg 68 mmHg [...] Vis Given Vis Pub CVX Tdap 10/10/2017 Chloe + Isabel SKB BOOSTRIX [id number] Intramuscular Left Deltoid 10/10/2017 [...] occupational health examination Jan 27 2018 9:35AM Payers Insurance Name Company Name Plan Name Plan Number Policy Number Policy Group Number Start Date BCBS [employer] [place] [id number] N/A [facility] [id number] N/A [facility] [id number] N/A [facility] [id number] N/A History of Encounters Visit Date Visit Type Provider 01/27/2018 Office visit Teresita Carter OPTICAL MODEL MAKER AND TESTER 01/06/2018 Office visit Samy Griffin MD 11/25/2017 [facility] Samy Griffin MD 11/21/2017 Office visit [...] Griffin MD 04/19/2017 Office visit Shelia Jarvis OPTICAL MODEL MAKER AND TESTER 04/17/2017 Office visit Eloisa Smith OPTICAL MODEL MAKER AND TESTER
--- OUTSIDE RECORDS SUMMARY | 2018-06-25 13:24 | XMS REPORT ---
Author Author Samy Griffin [facility] Address [address] [place], [place] [address] Care Team Providers Care Metal Drill Operator Name Role Phone Samy Griffin PCP Eloisa [...] Vis Given Vis Pub CVX Tdap 10/10/2017 [employer] SKB BOOSTRIX [id number] Intramuscular Left Deltoid 10/10/2017 [...] Policy Group Number Start Date BCBS Bcbs [facility] [id number] N/A [facility] [id number] N/A [facility] [id number] N/A History of Encounters Visit Date Visit [...] Jarvis APRN 04/17/2017 Office visit Eloisa Smith SUEDE BRUSHER
--- OUTSIDE RECORDS SUMMARY | 2018-06-25 13:24 | XMS REPORT ---
Author Author Samy Griffin [facility] Address [address] [place], [place] [phone] Care Team Providers Care Brake Machine Operator Name Role Phone Samy Griffin [...] Number Policy Group Number Start Date [facility]BS [facility] [id number] N/A [facility] [id number] N/A History of Encounters Visit Date Visit Type Provider 06/27/2017 Office visit Samy Griffin MD 05/30/2017 Office visit Samy Griffin MD 05/03/2017 Office visit Samy Griffin MD 04/19/2017 Office visit Shelia Jarvis APRN 04/17/2017 Office visit Eloisa Smith JEWEL FLAT SURFACER
--- OUTSIDE RECORDS SUMMARY | 2018-06-25 13:25 | XMS REPORT ---
Author Author Samy Griffin [facility] Address [address] [place], [place] [address] Care Team Providers Care Rfid Specialist Name Role Phone Samy Griffin PCP Unavailable [...] in first trimester May 03 2017 10:48AM Payers Insurance Name Company Name Plan Name Plan Number Policy Number Policy Group Number [facility] [id number] N/A [facility] [id number] N/A History of Encounters Visit Date Visit Type Provider 05/03/2017 Office visit Samy Griffin MD 04/19/2017 Office visit Shelia Jarvis APRN 04/17/2017 Office visit Eloisa Smith FIGHT MANAGER
--- OUTSIDE RECORDS SUMMARY | 2018-06-25 13:25 | XMS REPORT ---
Author Author Samy Griffin Organization [facility] Address [address] [place], [place] [address] Care Team Providers Care Director Speech Language Name Role Phone Samy Griffin PCP Eloisa [...] EXAM OF WRIST Reviewed 09/19/2017 12:00 AM COMPLETE CBC W/AUTO DIFF WBC Returned Results Summary Date and Description Results [...] Group Number Start Date BCBS Bcbs [facility] [id number] N/A [facility] [id number] N/A [facility] [id number] N/A History of Encounters Visit Date Visit Type Provider 09/19/2017 Office visit Samy Griffin MD 08/22/2017 Office visit Samy Griffin MD 08/06/2017 Office visit Rene Dillard NP 07/25/2017 Office visit Samy Griffin MD 06/27/2017 Office visit Samy Griffin MD 05/30/2017 Office visit Samy Griffin MD 05/03/2017 Office visit Samy Griffin MD 04/19/2017 Office visit Shelia Jarvis APRN 04/17/2017 Office visit Eloisa Smith PULPER TENDER
--- OUTSIDE RECORDS SUMMARY | 2018-06-25 13:25 | XMS REPORT ---
Author Author Samy Griffin Organization [facility] Address [address] [place], [place] [address] Care Team Providers Care Coke Oven Mason Name Role Phone Samy Griffin PCP Eloisa [...] Group Number Start Date BCBS [facility] [place] [id number] N/A [facility] [id number] N/A [facility] [id number] N/A History of Encounters Visit Date Visit [...]
--- OUTSIDE RECORDS SUMMARY | 2018-06-25 13:25 | XMS REPORT ---
Author Author Samy Griffin [facility] Address [address] [place], [place] [address] Care Team Providers Care Stock Parts Fabricator Name Role Phone Samy Griffin PCP Unavailable [...] 12:00 AM TRICHOMONAS VAGINALIS AMPLIF Reviewed 05/03/2017 10:48 AM US PREG UTERUS REAL TIME W/IMAGE [...] Number Policy Group Number Start Date BCBS [facility] [id number] N/A [facility] [id number] N/A History of Encounters Visit Date Visit Type Provider 05/03/2017 Office visit Samy Griffin MD 04/19/2017 Office visit Shelia Jarvis APRN 04/17/2017 Office visit Eloisa Smith WHARF HAND
--- OUTSIDE RECORDS SUMMARY | 2018-06-25 13:25 | XMS REPORT ---
Author Author Samy Griffin Organization [facility] Address [address] [place], [place] [address] Care Team Providers Care Vegetable Vendor Name Role Phone Samy Griffin PCP Unavailable [...] Policy Group Number Start Date [facility] [id number] N/A [facility] [id number] N/A History of Encounters Visit Date Visit Type Provider 06/27/2017 Office visit Samy Griffin MD 05/30/2017 Office visit Samy Griffin MD 05/03/2017 Office visit Samy Griffin MD 04/19/2017 Office visit Shelia Jarvis APRN 04/17/2017 Office visit Eloisa Smith APRN
--- OUTSIDE RECORDS SUMMARY | 2018-06-25 13:26 | XMS REPORT ---
Author Author Nany Vega [facility] Address [address] [place], [place] [address] Care Team Providers Care Integration Software Engineer Name Role Phone Nany Vega PCP Eloisa Smithn PreferredProvider Allergies and Adverse [...] Vis Given Vis Pub CVX Tdap 10/10/2017 [employer] SKB BOOSTRIX [id number] Intramuscular Left Deltoid 10/10/2017 [...] Policy Group Number Start Date BCBS Bcbs [facility] [id number] N/A [facility] [id number] N/A [facility] [id number] N/A History of Encounters Visit Date Visit [...] Jarvis APRN 04/17/2017 Office visit Eloisa Smith LINEMAN
--- OUTSIDE RECORDS SUMMARY | 2018-06-25 13:26 | XMS REPORT ---
Author Author Samy Griffin Organization [facility] Address [address] [place], [place] [address] Care Team Providers Care Permit Technician Name Role Phone Samy Griffin PCP Unavailable [...] Number Policy Group Number Start Date [facility] [id number] N/A [facility] [id number] N/A History of Encounters Visit Date Visit Type Provider 08/22/2017 Office visit Samy Griffin MD 08/06/2017 Office visit Rene Dillard NP 07/25/2017 Office visit Samy Griffin MD 06/27/2017 Office visit Samy Griffin MD 05/30/2017 Office visit Samy Griffin MD 05/03/2017 Office visit Samy Griffin MD 04/19/2017 Office visit Shelia Jarvis APRN 04/17/2017 Office visit Eloisa Smith GLOBAL MARKETING MANAGER
--- OUTSIDE RECORDS SUMMARY | 2018-06-25 13:26 | XMS REPORT ---
Author Author Samy Griffin [facility] Address [address] [place], [place] [address] Care Team Providers Care Hourly Shift Manager Name Role Phone Samy Griffin PCP Unavailable [...] Group Number Start Date BCBS [facility] [facility] [place] [id number] N/A [facility] [id number] N/A History of Encounters Visit Date Visit Type Provider 05/30/2017 Office visit Samy Griffin MD 05/03/2017 Office visit Samy Griffin MD 04/19/2017 Office visit Shelia Jarvis APRN 04/17/2017 Office visit Eloisa Smith SENIOR ENERGY CONSULTANT
--- OUTSIDE RECORDS SUMMARY | 2018-06-25 13:26 | XMS REPORT ---
Author Author Shelia Jarvis [facility] Address [address] [place], [place] [address] Care Team Providers Care Speeder Machine Operator Name Role Phone Shelia Jarvis PCP Unavailable [...] Not available. Vital Signs Date Time BP-Sys(mm[Hg] BP-Vaani(mm[Hg]) HR(bpm) RR(rpm) Temp WT HT HC BMI [...] Never smoker Alcohol Former History of Procedures Not available. Results Summary Not available. History Of Immunizations Not available. History of Past Illness Name Date of Onset Comments endometriosis Apr 17 2017 11:57AM Cutaneous abscess of limb, unspecified Apr 17 2017 11:57AM Cellulitis of unspecified part of limb Apr 17 2017 11:57AM Earlobe lesion, left Apr 17 2017 11:57AM Payers Insurance Name Company Name Plan Name Plan Number Policy Number Policy Group Number [facility] [id number] N/A History of Encounters Visit Date Visit Type Provider 04/19/2017 Office visit Shelia Jarvis CHINESE INSTRUCTOR 04/17/2017 Office visit Eloisa Smith CHINESE INSTRUCTOR
--- OUTSIDE RECORDS SUMMARY | 2018-06-25 13:26 | XMS REPORT ---
Author Author Nany Vega [facility] Address [address] [place], [place] [address] Care Team Providers Care Development Manager Name Role Phone Nany Vega PCP Eloisa [...] Vis Given Vis Pub CVX Tdap 10/10/2017 [employer] SKB BOOSTRIX [id number] Intramuscular Left Deltoid 10/10/2017 [...] Policy Group Number Start Date BCBS Bcbs [facility] [id number] N/A [facility] [id number] N/A [facility] [id number] N/A History of Encounters Visit Date Visit [...] Jarvis APRN 04/17/2017 Office visit Eloisa Smith POLICY SPECIALIST
--- OUTSIDE RECORDS SUMMARY | 2018-06-25 13:27 | XMS REPORT ---
Author Author Samy Griffin [facility] Address [address] [place], [place] [address] Care Team Providers Care Coding Tech Name Role Phone Samy Griffin PCP Eloisa Smith PreferredProvider Allergies and Adverse Reactions Name Reaction Notes No known drug allergy Plan of Treatment Planned Activity Comments Planned Date Planned Time Plan/Goal PAP Smear, thin prep 01/06/2018 12:00 AM Medications Name Start Date Expiration [...] Given Vis Pub CVX Tdap 10/10/2017 [employer] SKB BOOSTRIX [id number] Intramuscular Left Deltoid 10/10/2017 [...] Number Policy Group Number Start Date BCBS Bc [employer] [place] [id number] N/A [facility] [id number] N/A [facility] [id number] N/A History of Encounters Visit Date Visit Type Provider 01/06/2018 Office visit Samy Griffin MD 11/25/2017 [facility] Samy Griffin MD 11/21/2017 Office [...] visit Rene Dillard NP 07/25/2017 Office visit aSmy Griffin MD 06/27/2017 Office visit Samy Griffin MD 05/30/2017 Office visit Samy Griffin MD 05/03/2017 Office visit Samy Griffin MD 04/19/2017 Office visit Shelia Jarvis APRN 04/17/2017 Office visit Eloisa Smith FUEL CELL BATTERY TECHNICIAN
--- OUTSIDE RECORDS SUMMARY | 2018-06-25 13:27 | XMS REPORT ---
Author Author Samy Griffin [facility] Address [address] [place], [place] [address] Care Team Providers Care Crayon Grader Name Role Phone Samy Griffin PCP Unavailable [...] 04/19/2017 12:00 AM TRICHOMONAS VAGINALIS AMPLIF Reviewed Results Summary Date and Description Results [...] Group Number Start Date BCBS Bcbs [facility] [id number] N/A [facility] [id number] N/A History of Encounters Visit Date Visit Type Provider 05/03/2017 Office visit Samy Griffin MD 04/19/2017 Office visit Shelia Jarvis APRN 04/17/2017 Office visit Eloisa Smith APRN
--- OUTSIDE RECORDS SUMMARY | 2018-06-25 13:28 | XMS REPORT ---
Author Author Samy Griffin [facility] Address [address] [place], [place] [address] Care Team Providers Care Clinical Education Coordinator Name Role Phone Samy Griffin PCP [...] Vis Given Vis Pub CVX Tdap 10/10/2017 Singular[employer] SKB BOOSTRIX [id number] Intramuscular Left Deltoid 10/10/2017 [...] Policy Group Number Start Date BCBS Bcbs [facility] [id number] N/A [place] [id number] N/A [facility] [id number] N/A History of Encounters Visit Date Visit [...]
--- OUTSIDE RECORDS SUMMARY | 2018-06-25 13:28 | XMS REPORT ---
Author Author Samy Griffin [facility] Address [address] [place], [place] [address] Care Team Providers Care Supervisor Labor Gang Name Role Phone Samy Griffin PCP Unavailable [...] Left wrist pain Aug 06 2017 3:39PM Payers Insurance Name Company Name Plan Name Plan Number Policy Number Policy Group Number Start Date BCBS [facility] [place] [id number] N/A [facility] [id number] N/A History of Encounters Visit Date Visit [...]
--- OUTSIDE RECORDS SUMMARY | 2018-06-25 13:29 | XMS REPORT ---
Author Author Samy Griffin [facility] Address [address] [place], [place] [address] Care Team Providers Care Flange Turner Name Role Phone Samy Griffin PCP Unavailable [...] Number Policy Group Number Start Date [facility]BS [facility] [id number] N/A [facility] [id number] N/A History of Encounters Visit Date Visit Type Provider 07/25/2017 Office visit Samy Griffin MD 06/27/2017 Office visit Samy Griffin MD 05/30/2017 Office visit Samy Griffin MD 05/03/2017 Office visit Samy Griffin MD 04/19/2017 Office visit Shelia Jarvis APRN 04/17/2017 Office visit Eloisa Smith CREDIT ADJUSTER
--- OUTSIDE RECORDS SUMMARY | 2018-06-25 13:29 | XMS REPORT ---
Author Author Samy Griffin Organization [facility] Address [address] [place], [place] [address] Care Team Providers Care Aboriginal Community Council Member Name Role Phone Samy Griffin PCP Eloisa [...] Group Number Start Date BCBS Bcbs [employer] [place] [id number] N/A [facility] [id number] N/A [facility] [id number] N/A History of Encounters Visit Date Visit Type Provider 09/19/2017 Office visit Samy Griffin MD 08/22/2017 Office visit Samy Griffin MD 08/06/2017 Office visit Rene Dillard NP 07/25/2017 Office visit Samy Griffin MD 06/27/2017 Office visit Samy Griffin MD 05/30/2017 Office visit Smay Griffin MD 05/03/2017 Office visit Samy Griffin MD 04/19/2017 Office visit Shelia Jarvis APRN 04/17/2017 Office visit Eloisa Smith APRN
--- OUTSIDE RECORDS SUMMARY | 2018-06-25 13:29 | XMS REPORT ---
Author Author Samy Griffin [facility] Address [address] [place], [place] [address] Care Team Providers Care Pony Trimmer Name Role Phone Samy Griffin PCP Unavailable [...] Group Number Start Date BCBS Bcbs [employer] [place] [id number] N/[facility] [id number] N/A History of Encounters Visit Date Visit Type Provider 05/30/2017 Office visit Samy Griffin MD 05/03/2017 Office visit Samy Griffin MD 04/19/2017 Office visit Shelia Jarvis APRN 04/17/2017 Office visit Eloisa Smith BICYCLE RENTAL CLERK
--- OUTSIDE RECORDS SUMMARY | 2018-06-25 13:29 | XMS REPORT ---
Author Author Samy Griffin [facility] Address [address] [place], [place] [address] Care Team Providers Care Slab Polisher Name Role Phone Samy Griffin PCP Unavailable [...] Policy Number Policy Group Number [facility] Date [facility] [id number] N/A [facility] [id number] N/A History of Encounters Visit Date Visit Type Provider 05/03/2017 Office visit Samy Griffin MD 04/19/2017 Office visit Shelia Jarvis APRN 04/17/2017 Office visit Eloisa Smith AVIONICS SYSTEMS TECHNICIAN
--- OUTSIDE RECORDS SUMMARY | 2018-06-25 13:30 | XMS REPORT | Continuity of Care Document ---
Author Author [facility] Organization [facility] Address Unknown Phone Unavailable Allergies Active Description Code Type Severity Reaction Onset Reported/Identified Relationship to Patient Clinical Status Yes No Known Allergies [id number] N /A N/A Yes No Known Drug Allergies [id number] N/A N/A Medications There is no data. Problems Date Dx Coded Attending Type Code Diagnosis Diagnosed By 04/26/2011 381.81 EUSTACHIAN TUBE DYSFUNCTION 04/26/2011 466.0 BRONCHITIS, ACUTE 04/26/2011 477.0 ALLERGIC RHINITIS DUE TO POLLEN 04/26/2011 SHAUN IGLESIAS APRN 381.81 EUSTACHIAN TUBE DYSFUNCTION 04/26/2011 SHAUN IGLESIAS APRN 466.0 BRONCHITIS, ACUTE 04/26/2011 SHAUN IGLESIAS APRN 477.0 ALLERGIC RHINITIS DUE TO POLLEN 04/26/2011 381.81 EUSTACHIAN TUBE DYSFUNCTION 04/26/2011 466.0 BRONCHITIS, ACUTE 04/26/2011 477.0 ALLERGIC RHINITIS DUE TO POLLEN 04/26/2011 RAÚL BEE APRN 381.81 EUSTACHIAN TUBE DYSFUNCTION 04/26/2011 RAÚL BEE APRN 466.0 BRONCHITIS, ACUTE 04/26/2011 RAÚL BEE APRN 477.0 ALLERGIC RHINITIS DUE TO POLLEN 04/26/2011 KAE CASTRO APRN 381.81 EUSTACHIAN TUBE DYSFUNCTION 04/26/2011 KAE CASTRO APRN 466.0 BRONCHITIS, ACUTE 04/26/2011 KAE CASTRO APRN 477.0 ALLERGIC RHINITIS DUE TO POLLEN 04/26/2011 RAÚL BEE APRN 381.81 EUSTACHIAN TUBE DYSFUNCTION 04/26/2011 RAÚL BEE APRN 466.0 BRONCHITIS, ACUTE 04/26/2011 RAÚL BEE APRN 477.0 ALLERGIC RHINITIS DUE TO POLLEN 04/26/2011 XIOMARA TAVAREZ APRN 381.81 EUSTACHIAN TUBE DYSFUNCTION 04/26/2011 XIOMARA TAVAREZ APRN R 466.0 BRONCHITIS, ACUTE 04/26/2011 XIOMARA TAVAREZ APRN R 477.0 ALLERGIC RHINITIS DUE TO POLLEN 12/02/2012 465.9 UPPER RESPIRATORY INFECTION 12/02/2012 787.03 vomiting 12/02/2012 SHAUN IGLESIAS APRN 465.9 UPPER RESPIRATORY INFECTION 12/02/2012 SHAUN IGLESIAS APRN L 787.03 vomiting 12/02/2012 465.9 UPPER RESPIRATORY INFECTION 12/02/2012 787.03 vomiting 12/02/2012 RAÚL BEE APRN 465.9 UPPER RESPIRATORY INFECTION 12/02/2012 RAÚL BEE APRN 787.03 vomiting 12/02/2012 KAE CASTRO APRN 465.9 UPPER RESPIRATORY INFECTION 12/02/2012 KAE CASTRO APRN 787.03 vomiting 12/02/2012 RAÚL BEE APRN 465.9 UPPER RESPIRATORY INFECTION 12/02/2012 RAÚL BEE APRN 787.03 vomiting 12/02/2012 XIOMARA TAVAREZ APRN R 465.9 UPPER RESPIRATORY INFECTION 12/02/2012 XIOMARA TAVAREZ APRN R 787.03 vomiting 01/20/2013 SHAUN IGLESIAS APRN L 913.4 INSECT BITE NONVENOMOUS OF ELBOW FOREARM AND WRIST WITHOUT INFECTION 01/20/2013 913.4 INSECT BITE NONVENOMOUS OF ELBOW FOREARM AND WRIST WITHOUT INFECTION 01/20/2013 RAÚL EBE APRN 913.4 INSECT BITE NONVENOMOUS OF ELBOW FOREARM AND WRIST WITHOUT INFECTION 01/20/2013 KAE CASTRO APRN R 913.4 INSECT BITE NONVENOMOUS OF ELBOW FOREARM AND WRIST WITHOUT INFECTION 01/20/2013 RAÚL BEE APRN 913.4 INSECT BITE NONVENOMOUS OF ELBOW FOREARM AND WRIST WITHOUT INFECTION 01/20/2013 XIOMARA TAVAREZ APRN R 913.4 INSECT BITE NONVENOMOUS OF ELBOW FOREARM AND WRIST WITHOUT INFECTION 04/17/2013 682.6 CELLULITIS OF THE LEFT LEG 04/17/2013 916.4 INSECT BITE NONVENOMOUS OF HIP THIGH LEG AND ANKLE WITHOUT INFECTION 04/17/2013 RAÚL BEE APRN 682.6 CELLULITIS OF THE LEFT LEG 04/17/2013 RAÚL BEE APRN 916.4 INSECT BITE NONVENOMOUS OF HIP THIGH LEG AND ANKLE WITHOUT INFECTION 04/17/2013 KAE CASTRO APRN R 682.6 CELLULITIS OF THE LEFT LEG 04/17/2013 KAE CASTRO APRN R 916.4 INSECT BITE NONVENOMOUS OF HIP THIGH LEG AND ANKLE WITHOUT INFECTION 04/17/2013 RAÚL BEE APRN 682.6 CELLULITIS OF THE LEFT LEG 04/17/2013 RAÚL BEE APRN 916.4 INSECT BITE NONVENOMOUS OF HIP THIGH LEG AND ANKLE WITHOUT INFECTION 04/17/2013 XIOMARA TAVAREZ APRN 682.6 CELLULITIS OF THE LEFT LEG 04/17/2013 XIOMARA TAVAREZ APRN 916.4 INSECT BITE NONVENOMOUS OF HIP THIGH LEG AND ANKLE WITHOUT INFECTION 12/15/2013 RAÚL BEE APRN 008.8 GASTROENTERITIS VIRAL 12/15/2013 RAÚL BEE APRN 462 ACUTE PHARYNGITIS 12/15/2013 KAE CASTRO APRN 008.8 GASTROENTERITIS VIRAL 12/15/2013 KAE CASTRO APRN 462 ACUTE PHARYNGITIS 12/15/2013 RAÚL BEE APRN 008.8 GASTROENTERITIS VIRAL 12/15/2013 RAÚL BEE APRN 462 ACUTE PHARYNGITIS 12/15/2013 XIOMARA TAVAREZ APRN R 008.8 GASTROENTERITIS VIRAL 12/15/2013 XIOMARA TAVAREZ APRN R 462 ACUTE PHARYNGITIS 02/13/2014 KAE CASTRO APRN 845.03 SPRAIN LAT ANKLE 02/13/2014 RAÚL BEE APRN 845.03 SPRAIN LAT ANKLE 02/13/2014 XIOMARA TAVAREZ APRN R 845.03 SPRAIN LAT ANKLE 03/30/2014 RAÚL BEE APRN 599.70 HEMATURIA 03/30/2014 RAÚL BEE APRN 724.5 back pain 03/30/2014 XIOMARA TAVAREZ APRN 599.70 HEMATURIA 03/30/2014 XIOMARA TAVAREZ APRN R 724.5 BACK PAIN 04/02/2014 XIOMARA TAVAREZ APRN R 789.09 ABDOMINAL PAIN OTHER SPECIFIED SITE 04/02/2014 XIOMARA TAVAREZ APRN R 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 02/07/2018 S E669 Obesity, unspecified 02/07/2018 P K439 Ventral hernia without obstruction or gangrene 02/22/2018 P K3580 Unspecified acute appendicitis Procedures Code [place] [address] THERAPUTIC INJ SQ/IM 04/17/2013 J2930 SOLUMEDROL INJ 04/17/2013 73470 STREP A (IN-HOUSE) 12/15/2013 54258 UA LONG DIP 03/30/2014 04717 THERAPUTIC INJ SQ/IM 03/30/2014 J1885 TORADOL INJ 03/30/2014 74362 CULTURE URINE 03/30/2014 79858 UA LONG DIP 04/02/2014 [id number] Resection of Appendix, Percutaneous Endoscopic Approach 02/20/2018 Results Test Result Range RPR, Rfx Qn RPR/Confirm TP - 04/19/17 12:40 RPR Non Reactive Non Reactive Rubella Antibodies, IgG - 04/19/17 12:40 Rubella Antibodies, IgG 4.46 index Immune >0.99 HBsAg Screen - 04/19/17 12:40 HBsAg Screen Negative Negative Strep Gp B NATI - 11/04/17 08:30 Strep Gp B NATI Negative Negative Measles/Mumps/Rubella Immunity - 01/27/18 10:50 Rubella Antibodies, IgG 3.17 index Immune >0.99 Rubeola Ab, IgG >300.0 AU/mL Immune >29.9 Mumps Abs, IgG 30.3 AU/mL Immune >10.9 Varicella-Zoster V Ab, IgG - 01/27/18 10:50 Varicella Zoster IgG 1152 index Immune >165 Encounters ACCT No. Visit Date/Time Discharge Status Pt. Type Provider Facility Loc./Unit Complaint [id number] 03/04/2018 12:03:55 03/04/2018 23:59:59 [facility] Outpatient Kae Ramires [id number] 02/21/2018 12:28:13 02/21/2018 23:59:59 [facility] Outpatient Kae Ramires [id number] 02/18/2018 10:50:11 02/18/2018 23:59:59 CLS Outpatient Sealy, Kae [id number] 02/17/2018 15:29:51 02/17/2018 23:59:59 CLS Outpatient Sealy, Kae [id number] 02/10/2018 10:37:41 02/10/2018 23:59:59 CLS Outpatient Sealy, Kae [id number] 01/29/2018 15:01:41 01/29/2018 23:59:59 CLS Outpatient Sealy, Kae [id number] 01/27/2018 10:25:59 01/27/2018 23:59:59 CLS Outpatient WalkerTeresita [id number] 01/06/2018 17:42:54 01/06/2018 23:59:59 CLS Outpatient ZimbrunesSamyardo [id number] 11/26/2017 14:24:32 11/26/2017 23:59:59 CLS Outpatient ZimbruneSamy chambersardo [id number] 11/21/2017 14:37:52 11/21/2017 23:59:59 CLS Outpatient [place]yn [place] [id number] 11/18/2017 16:18:56 11/18/2017 23:59:59 CLS Outpatient ZimbrunesSamyardo [id number] 11/11/2017 17:27:09 11/11/2017 23:59:59 CLS Outpatient ZimbrunesSkyn Pa [id number] 11/04/2017 14:31:41 11/04/2017 23:59:59 CLS Outpatient [place]une[place] chambers[place] [id number] 10/31/2017 11:07:35 10/31/2017 23:59:59 CLS Outpatient [place]im[place]yn Pa [id number] 10/22/2017 17:51:15 10/22/2017 23:59:59 CLS Outpatient [place]une[place]andeep [place] [id number] 10/10/2017 16:41:45 10/10/2017 23:59:59 CLS Outpatient Nany Vega [id number] 09/19/2017 15:46:04 09/19/2017 23:59:59 CLS Outpatient Zimbrunetrish Samyfaith Winn [id number] 08/22/2017 17:20:55 08/22/2017 23:59:59 CLS Outpatient Zimbrunes, Samy Ap [id number] 08/06/2017 16:24:36 08/06/2017 23:59:59 CLS Outpatient Rene Dillard [id number] 07/25/2017 17:11:23 07/25/2017 23:59:59 CLS Outpatient Samy Griffin [id number] 06/27/2017 12:10:46 06/27/2017 23:59:59 [facility] [id number] 05/30/2017 11:49:28 05/30/2017 23:59:59 [facility] [id number] 05/03/2017 12:20:57 05/03/2017 23:59:59 [facility] [id number] 04/19/2017 15:06:30 04/19/2017 23:59:59 CLS Outpatient Tavarez Shelia M [id number] 04/17/2017 16:24:57 04/17/2017 23:59:59 CLS Outpatient Eloisa Smith [id number] 01/28/2018 15:07:00 Document Registration [id number] 04/20/2017 08:10:00 Document Registration [id number] 05/26/2018 11:26:42 Document Registration [id number] 02/20/2018 14:44:29 Document Registration [id number] 02/18/2018 10:13:34 Document Registration [id number] 01/29/2018 23:59:38 Document Registration [id number] 01/27/2018 10:41:40 Document Registration [id number] 11/21/2017 11:24:59 Document Registration [id number] 11/19/2017 18:18:52 Document Registration [id number] 11/19/2017 12:03:25 Document Registration [id number] 11/13/2017 15:01:40 Document Registration [id number] 11/05/2017 08:24:07 Document Registration [id number] 10/30/2017 10:29:11 Document Registration [id number] 11/07/2017 19:05:00 Document Registration [id number] 01/28/2018 15:07:00 Document Registration [id number] 04/22/2017 15:06:00 Document Registration [id number] 04/20/2017 08:10:00 Document Registration [id number] 04/02/2014 15:27:00 04/02/2014 23:59:59 CLS Outpatient XIOMARA TAVAREZ APRN [id number] 03/30/2014 15:18:00 03/30/2014 23:59:59 CLS Outpatient RAÚL BEE APRN [id number] 02/13/2014 10:49:00 02/13/2014 23:59:59 CLS Outpatient KAE CASTRO APRN [id number] 12/15/2013 10:42:00 12/15/2013 23:59:59 CLS Outpatient RAÚL BEE APRN [id number] 01/20/2013 13:55:00 01/20/2013 23:59:59 CLS Outpatient SHAUN IGLESIAS APRN [id number] 12/02/2012 08:51:00 12/02/2012 23:59:59 CLS Outpatient [id number] 04/17/2013 13:23:00 Document Registration
--- OUTSIDE RECORDS SUMMARY | 2018-06-25 13:30 | XMS REPORT ---
Author Author SHAUN IGLESIAS [facility] Address [address] [place] [address] Care Team Providers Care Grain Broker Name Role Phone SHAUN IGLESIAS Unavailable PROBLEMS Type Condition ICD9-CM Code [id number] Code Onset Dates Condition Status SNOMED Code Problem Screening for diabetes mellitus Z13.1 Active 991872320 Problem Perennial allergic rhinitis, unspecified allergic rhinitis trigger J30.89 Active 570622271 Problem Weight loss counseling, encounter for Z71.3 Active 193295697 Assessment Screening for diabetes mellitus Z13.1 Jun, Active 937812313 ALLERGIES Unknown Allergies SOCIAL HISTORY No smoking Hx information available PLAN OF CARE VITAL SIGNS MEDICATIONS Unknown Medications RESULTS No Results PROCEDURES No Known procedures IMMUNIZATIONS No Known Immunizations
--- OUTSIDE RECORDS SUMMARY | 2018-06-25 13:30 | XMS REPORT ---
Author Author KELSIE SHAUN Organization [facility] Address [address] [place] [address] Care Team Providers Care Patient Day Coordinator Name Role Phone SHAUN IGLESIAS Unavailable PROBLEMS Type Condition ICD9-CM Code [id number] Code Onset Dates Condition Status SNOMED Code Problem Perennial allergic rhinitis, unspecified allergic rhinitis trigger J30.89 Active 749042988 Problem Weight loss counseling, encounter for Z71.3 Active 420728357 Assessment Perennial allergic rhinitis, unspecified allergic rhinitis trigger J30.89 Jun, Active 185015457 ALLERGIES Substance Reaction Event Type Date Status N.K.D.A. Unknown Non Drug Allergy Jun, Unknown SOCIAL HISTORY No smoking Hx information available PLAN OF CARE VITAL SIGNS Height 74 in 2016-06-28 Weight 187.9 lbs 2016-06-28 Heart Rate 83 bpm 2016-06-28 Respiratory Rate 18 2016-06-28 BMI 24.12 kg/m2 2016-06-28 Blood pressure systolic 108 mmHg 2016-06-28 Blood pressure diastolic 64 mmHg 2016-06-28 MEDICATIONS Medication Instructions Dosage Frequency Start Date End Date Duration Status ChlorTan D Active Nasonex 50 MCG/ACT Nasally Once a day 2 sprays in each nostril 24h Jun, Active Mobic 7.5 MG Orally PRN 1 tablet Active Cetirizine HCl 10 MG Orally Once a day 1 tablet 24h Active Gabapentin 100 MG Orally PRN Active RESULTS No Results PROCEDURES Procedure Date Ordered Related Diagnosis Body Site Office Visit, Est Pt., Level 3 Jun 28, 2016 IMMUNIZATIONS No Known Immunizations
--- OUTSIDE RECORDS SUMMARY | 2018-06-25 13:30 | XMS REPORT ---
Author Author SHAUN IGLESIAS [facility] Address [address] [place] [address] Care Team Providers Care Vision Impaired Teacher Name Role Phone SHAUN IGLESIAS Unavailable PROBLEMS Type Condition ICD9-CM Code [id number] Code Onset Dates Condition Status SNOMED Code Problem Screening for diabetes mellitus Z13.1 Active 301885962 Problem Perennial allergic rhinitis, unspecified allergic rhinitis trigger J30.89 Active 488360685 Problem Weight loss counseling, encounter for Z71.3 Active 769322046 ALLERGIES Unknown Allergies SOCIAL HISTORY No smoking Hx information available PLAN OF CARE VITAL SIGNS MEDICATIONS Medication Instructions Dosage Frequency Start Date End Date Duration Status Kody 60 mg Orally Three times a day 1 capsule 30 minutes before meals 8h Jun, Active RESULTS No Results PROCEDURES No Known procedures IMMUNIZATIONS No Known Immunizations
--- OUTSIDE RECORDS SUMMARY | 2018-06-25 13:30 | XMS REPORT ---
Author Author KELSIE SHAUN Organization [facility] Address [address] [place] [address] Care Team Providers Care Dietetics Teacher Name Role Phone SHAUN IGLESIAS Unavailable PROBLEMS Type Condition ICD9-CM Code ZOS26-KE Code Onset Dates Condition Status SNOMED Code Problem Screening for diabetes mellitus Z13.1 Active 452567919 Problem Perennial allergic rhinitis, unspecified allergic rhinitis trigger J30.89 Active 627677686 Problem Weight loss counseling, encounter for Z71.3 Active 346807508 Assessment Screening for diabetes mellitus Z13.1 Jun, Active 403255449 ALLERGIES Unknown Allergies SOCIAL HISTORY No smoking Hx information available PLAN OF CARE VITAL SIGNS MEDICATIONS Unknown Medications RESULTS Name Result Date Reference Range LIPID PANEL 2016-07-13 Cholesterol, Total 210 100-199 Triglycerides 112 0-149 HDL Cholesterol 59 >39 VLDL Cholesterol Juan 22 5-40 LDL Cholesterol Calc 129 0-99 Comment: CMP 2016-07-13 Glucose, Serum 75 65-99 BUN 10 6-20 Creatinine, Serum 0.50 0.57-1.00 eGFR If NonAfricn Am 136 >59 eGFR If Africn Am 157 >59 BUN/Creatinine Ratio 20 8-20 Sodium, Serum 141 134-144 Potassium, Serum 4.2 3.5-5.2 Chloride, Serum 99 97-108 Carbon Dioxide, Total 20 18-29 Calcium, Serum 9.8 8.7-10.2 Protein, Total, Serum 7.6 6.0-8.5 Albumin, Serum 4.7 3.5-5.5 Globulin, Total 2.9 1.5-4.5 A/G Ratio 1.6 1.1-2.5 Bilirubin, Total <0.2 0.0-1.2 Alkaline Phosphatase, S 103 39-117 AST (SGOT) 16 0-40 ALT (SGPT) 23 0-32 PROCEDURES Procedure Date Ordered Related Diagnosis Body Site LIPID PANEL Jul 13, 2016 COMPREHEN METABOLIC PANEL Jul 13, 2016 VENIPUNCT, ROUTINE* Jul 13, 2016 IMMUNIZATIONS No Known Immunizations
--- OUTSIDE RECORDS SUMMARY | 2018-06-25 13:30 | XMS REPORT ---
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 Name Role Phone SHAUN IGLESIAS Unavailable PROBLEMS Type Condition ICD9-CM Code QMZ42-VS Code Onset Dates Condition Status SNOMED Code Problem Screening for diabetes mellitus Z13.1 Active 001700825 Problem Perennial allergic rhinitis, unspecified allergic rhinitis trigger J30.89 Active 130842549 Problem Weight loss counseling, encounter for Z71.3 Active 876158255 ALLERGIES Unknown Allergies SOCIAL HISTORY No smoking Hx information available PLAN OF CARE VITAL SIGNS MEDICATIONS Medication Instructions Dosage Frequency Start Date End Date Duration Status Kody 60 mg Orally Three times a day 1 capsule 30 minutes before meals 8h Jun, Active RESULTS No Results PROCEDURES No Known procedures IMMUNIZATIONS No Known Immunizations
--- OUTSIDE RECORDS SUMMARY | 2018-06-25 13:30 | XMS REPORT ---
Author Author Nany Vega [facility] Address [address] [place], [place] [address] Care Team Providers Care Visually Impaired Teacher Name Role Phone Nany Vega PCP Eloisa [...] AM COMPLETE CBC W/AUTO DIFF WBC Reviewed Results Summary Date and Description Results [...] MANUAL DIFF NOT IND History Of Immunizations Not available. History of [...] Number Policy Group Number Start Date BCBS [facility] [id number] N/A [facility] [id number] N/A [facility] [id number] N/A History of Encounters Visit Date Visit Type Provider 10/10/[address] Nany Vega MD 09/19/2017 Office visit Samy Griffin MD 08/22/2017 Office visit Samy Griffin MD 08/06/2017 Office visit Rene Dillard NP 07/25/2017 Office visit Samy Griffin MD 06/27/2017 Office visit Samy Griffin MD 05/30/2017 Office visit Samy Griffin MD 05/03/2017 Office visit Samy Griffin MD 04/19/2017 Office visit Shelia Jarvis PLASTICS WORKER 04/17/2017 Office visit Eloisa Smith PLASTICS WORKER
--- OUTSIDE RECORDS SUMMARY | 2018-06-25 13:30 | XMS REPORT ---
Author Author [facility] Address [address] [place] [address] Care Team Providers Care Corn Grinder Name Role Phone SHAUN IGLESIAS Unavailable PROBLEMS Type Condition ICD9-CM Code FKF65-TT Code Onset Dates Condition Status SNOMED Code Problem Screening for diabetes mellitus Z13.1 Active 925656389 Problem Perennial allergic rhinitis, unspecified allergic rhinitis trigger J30.89 Active 260187363 Problem Weight loss counseling, encounter for Z71.3 Active 013136644 ALLERGIES Unknown Allergies SOCIAL HISTORY No smoking Hx information available PLAN OF CARE VITAL SIGNS MEDICATIONS Unknown Medications RESULTS No Results PROCEDURES No Known procedures IMMUNIZATIONS No Known Immunizations
[2018-06-25] MEDS ORDERED: SULF1TAB35 PO (13:57)
[2018-06-25] MEDS ORDERED: HYDR-4226 PO (13:57)
[2018-06-25] MEDS ORDERED: MUPI22OI2 TP (13:57)
--- NOTE | 2018-06-25 13:57 | ED Integumentary General ---
General Chief Complaint: Skin/Wound Problems Stated Complaint: BITE ON LEFT FOREARM Source: patient Exam Limitations: no limitations History of Present Illness Date Seen by Provider: Jun 25, 2018 Time Seen by Provider: 13:53 Initial Comments To ER with reports of a bump to the dorsal aspect left forearm. This been present for 2-3 days. No known cause. This is painful. No fevers or chills. No history of this. Timing/Duration: just prior to arrival Severity: moderate Location: extremities Possible Cause: no cause identified Allergies and Home Medications Allergies Coded Allergies: No Known Drug Allergies (Unverified , 06/25/18) Patient Home Medication List Home Medication List Reviewed: Yes Review of Systems Review of Systems Constitutional: see HPI EENTM: see HPI Respiratory: no symptoms reported Cardiovascular: no symptoms reported Genitourinary: no symptoms reported Musculoskeletal: no symptoms reported Skin: see HPI Psychiatric/Neurological: No Symptoms Reported Endocrine: No Symptoms Reported Past Slqzjta-Swfcpc-Vrwqpr Hx Patient Social History Recent Foreign Travel: No Contact w/Someone Who Travel: No Physical Exam Vital Signs Capillary Refill : General Appearance: WD/WN, no apparent distress HEENT: PERRL/EOMI, normal ENT inspection Neck: non-tender, full range of motion Respiratory: no respiratory distress, no accessory muscle use Gastrointestinal: normal bowel sounds, non tender Neurologic/Psychiatric: alert, normal mood/affect, oriented x 3 Skin: normal color, warm/dry Skin Problem Location: upper extremities Skin Problem Character: abscess (core-sized abscess to the dorsal aspect left forearm with central punctum draining purulent material when squeezed) Procedures/Interventions I&D : Blade Size: 11 I & D Procedure: betadine prep Departure Impression Primary Impression: Abscess Disposition: 01 HOME, SELF-CARE Condition: Stable Departure-Patient Inst. Decision time for Depature: 13:54 Referrals: NO,LOCAL PHYSICIAN (PCP/Family) Primary Care Physician Patient Instructions: Skin Abscess Add. Discharge Instructions: 1. Return to ER for any concerns 2. Apply any topical antibiotic twice daily for 5 days. Take the oral antibiotic twice daily for 7 days. Follow-up with your doctor within 1 week for recheck. Warm compresses to this area. You may let water run over it in the shower starting tonight. Keep this covered with a Band-Aid to collect drainage. All discharge instructions reviewed with patient and/or family. Voiced understanding. Scripts Hydrocodone/Acetaminophen ([place] 5-325 Tablet) 1 Each Tablet 1 EACH PO Q4H PRN for PAIN-MODERATE, #10 TAB Prov: MICKY KINGSTON APRN 06/25/18 Mupirocin (Mupirocin) 22 Gm Oint...g. 1 GM TP BID, #1 TUBE Prov: MICKY KINGSTON APRN 06/25/18 Sulfamethoxazole/Trimethoprim (Bactrim Ds Tablet) 1 Each Tablet 1 EACH PO BID, #14 TAB Prov: MICKY KINGSTON APRN 06/25/18 MICKY KINGSTON APRN Jun 25, 2018 13:57
[2018-06-25] MEDS ORDERED: LIDOCAINE 1% INJ 20 ML 20 ML VIAL ONE (13:58)
[2018-06-25] MEDS ORDERED: LIDOCAINE 2% 20 ML (XYLOCAINE) VIAL INJ ONE (14:00)
[2018-06-25] MEDS ORDERED: LIDOCAINE 1% INJ 20 ML 20 ML VIAL INJ ONE (14:15)
[2018-06-25 14:17] VITALS: BP 124/97
== END 2018-06-25 14:17 | disposition home or self-care (01) ==
LOC: ER 13:11
DX: L02.414 Cutaneous abscess of left upper limb (principal)
CPT/HCPCS: 10060; 87070; 87077; 87186; 87205